=== PATIENT | male | born 1975 | race Two or more races ===

== ENCOUNTER 2018-05-18 09:38 | Emergency (ER) | payer OTHER ==
[2018-05-18 10:07] LABS: NEGATIVE OBC STREP NEG; POSITIVE OBC STREP POS
== END 2018-05-18 10:08 | disposition home or self-care (01) ==
LOC: ER 09:38
DX: J02.9 Acute pharyngitis, unspecified (principal); H66.92 Otitis media, unspecified, left ear; R51 Headache
CPT/HCPCS: 87070; 87880; 99283

== ENCOUNTER 2019-07-30 11:09 | Emergency (ER) | payer MEDICAID ==
[~2019-07-30] VITALS: Ht 162.6 cm; Wt 68.0 kg
[~2019-07-30 11:09] MED LIST: AMOX500C PO; PRED20TA PO
[2019-07-30 11:45] VITALS: BP 157/85
[2019-07-30] MEDS ORDERED: DEXAMETHASONE 4 MG TABLET PO STA (12:21)
--- NOTE | 2019-07-30 12:29 | PHYS DOC ---
Past Medical History Past Medical History: No Pertinent History Past Surgical History: No Surgical History Additional Past Surgical Histo: Ear Alcohol Use: None Drug Use: None Adult General Chief Complaint Chief Complaint: SORE THROAT HPI HPI Patient is a 44 year old male who presents with runny nose, cough has been ongoing for 5 days. Patient rates his pain as 8 out of 10 and sharp also states he has body aches. Has not taking medicine prior to arrival. Review of Systems Review of Systems Constitutional: Denies fever or chills [] Eyes: Denies change in visual acuity, redness, or eye pain [] HENT: Reports nasal congestion or sore throat [] Respiratory: Reports cough but denies shortness of breath [] Cardiovascular: No additional information not addressed in HPI [] GI: Denies abdominal pain, nausea, vomiting, bloody stools or diarrhea [] : Denies dysuria or hematuria [] Musculoskeletal: Denies back pain or joint pain [] Integument: Denies rash or skin lesions [] Neurologic: Denies headache, focal weakness or sensory changes [] Endocrine: Denies polyuria or polydipsia [] Complete systems were reviewed and found to be within normal limits, except as documented in this note. Current Medications Current Medications Current Medications Medications (Trade) Dose Ordered Sig/Snow Start Time Stop Time Status Last Admin Dose Admin Dexamethasone (Decadron) 10 mg 1X STAT 07/30/19 12:21 07/30/19 12:22 UNV Allergies Allergies Allergies Coded Allergies Type Severity Reaction Last Updated Verified No Known Drug Allergies 05/18/18 No Physical Exam Physical Exam Constitutional: Well developed, well nourished, no acute distress, non-toxic appearance. [] HENT: Normocephalic, atraumatic, bilateral external ears normal, oropharynx [address], tonsils are 2+/4, no oral exudates, nose normal. [] Eyes: PERRLA, EOMI, conjunctiva normal, no discharge. [] Neck: Normal range of motion, no tenderness, supple, no stridor. [] Cardiovascular:Heart rate regular rhythm, no murmur [] Lungs & Thorax: Bilateral breath sounds clear to auscultation [] Abdomen: Bowel sounds normal, soft, no tenderness, no masses, no pulsatile masses. [] Skin: Warm, dry, no erythema, no rash. [] Back: No tenderness, no CVA tenderness. [] Extremities: No tenderness, no cyanosis, no clubbing, ROM intact, no edema. [] Neurologic: Alert and oriented X 3, normal motor function, normal sensory function, no focal deficits noted. [] Psychologic: Affect normal, judgement normal, mood normal. [] Current Patient Data Vital Signs Vital Signs Date Time Temp Pulse Resp B/P (MAP) Pulse Ox O2 Delivery O2 Flow Rate FiO2 07/30/19 11:45 98.1 75 18 157/85 (109) 95 Room Air 98.1 EKG EKG [] Radiology/Procedures Radiology/Procedures [] Course & Med Decision Making Course & Med Decision Making Pertinent Labs and Imaging studies reviewed. (See chart for details) Will give Decadron in ER. Appears to have URI. Will instruct to take Mucinex, Zyrtec, and Flonase at home. Dragon Disclaimer Dragon Disclaimer This electronic medical record was generated, in whole or in part, using a voice recognition dictation system. Departure Departure Impression: Primary Impression: URI (upper respiratory infection) Disposition: HOME, SELF-CARE Condition: STABLE Referrals: NO PCP (PCP) Patient Instructions: Upper Respiratory Infection, Adult Additional Instructions: Thank you for visiting [facility]. We appreciate you trusting us with your care. If any additional problems come up don't hesitate to return to visit us. Please follow up with your primary care provider so they can plan additional care if needed and know about the problem that you had. If symptoms worsen come back to the Emergency Department. Any concerning symptoms that start such as chest pain, shortness of air, weakness or numbness on one side of the body, running high fevers or any other concerning symptoms return to the ER. Please take Mucinex, Zyrtec, and Flonase at home over the counter. Follow label instructions. Please drink plenty of fluids. Problem Qualifiers Primary Impression: URI (upper respiratory infection) URI type: unspecified URI Qualified Codes: J06.9 - Acute upper respiratory infection, unspecified LAKSHMI JANSEN APRN Jul 30, 2019 12:29
== END 2019-07-30 12:38 | disposition home or self-care (01) ==
LOC: ER 11:09
DX: J06.9 Acute upper respiratory infection, unspecified (principal); M79.18 Myalgia, other site
CPT/HCPCS: 99282; J8540

== ENCOUNTER 2019-12-06 11:57 | Emergency (ER) | payer MEDICAID ==
[~2019-12-06] VITALS: Ht 160 cm; Wt 77.1 kg
[2019-12-06] MEDS ORDERED: KETOROLAC TROMETHAMINE 10 MG TABLET PO STA (13:16)
[2019-12-06] MEDS ORDERED: IBUP-1027 PO (13:21)
[2019-12-06] MEDS ORDERED: ORPH100T PO (13:21)
[2019-12-06 13:22] VITALS: BP 153/83
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
== END 2019-12-06 13:35 | disposition home or self-care (01) ==
LOC: ER 11:57
DX: M54.5 Low back pain (principal); M54.6 Pain in thoracic spine; M25.562 Pain in left knee; G89.11 Acute pain due to trauma; V49.9XXA Car occupant (driver) (passenger) injured in unspecified traffic accident, initial encounter; Y93.89 Activity, other specified; Y92.488 Other paved roadways as the place of occurrence of the external cause; Y99.8 Other external cause status
CPT/HCPCS: 99283

== ENCOUNTER 2020-03-27 17:15 | Emergency (ER) | payer MEDICAID ==
[~2020-03-27] VITALS: Ht 165.1 cm; Wt 77.7 kg
[~2020-03-27 17:15] MED LIST changes: +IBUP-1027 PO; +ORPH100T PO
[2020-03-27] MEDS ORDERED: DEXAMETHASONE 4 MG TABLET PO ONE (18:45)
[2020-03-27] MEDS ORDERED: BENZ100C PO (19:01)
[2020-03-27] MEDS ORDERED: AZIT250T PO (19:01)
[2020-03-27] MEDS ORDERED: PRED20TA PO (19:01)
--- NOTE | 2020-03-27 19:01 | PHYS DOC ---
Past Medical History Past Medical History: No Pertinent History Past Surgical History: No Surgical History Additional Past Surgical Histo: Ear Smoking Status: Never Smoker Alcohol Use: None Drug Use: None General Adult EDM: Chief Complaint: COUGH HPI: HPI: 44-year-old male presents with report of cough x3 weeks. Patient reports he was tested for influenza as well as COVID 19 and they have come back negative. Zachary keren denies known sick contacts. Denies fever or chills. Review of Systems: Review of Systems: Constitutional: Denies fever or chills Eyes: Denies redness or eye pain HENT: Denies nasal congestion or sore throat Respiratory: Denies cough or shortness of breath Cardiovascular: Denies chest pain or palpitations GI: Denies abdominal pain, nausea, or vomiting : Denies dysuria or hematuria Musculoskeletal: Denies back pain or joint pain Integument: Denies rash or skin lesions Neurologic: Denies headache, focal weakness or sensory changes Complete systems were reviewed and found to be within normal limits, except as documented in this note. Current Medications: Current Medications Medications (Trade) Dose Ordered Sig/Snow Start Time Stop Time Status Last Admin Dose Admin Dexamethasone (Decadron) 10 mg 1X ONCE 03/27/20 18:45 03/27/20 18:47 DC Allergies: Allergies: Allergies Coded Allergies Type Severity Reaction Last Updated Verified No Known Drug Allergies 05/18/18 No Physical Exam: PE: Constitutional: Well developed, well nourished, no acute distress, non-toxic appearance HENT: Normocephalic, atraumatic, oropharynx moist, phyarynx with erythema without exudate- appears more consistent for post nasal drip Eyes: Conjunctiva normal, no discharge Neck: Normal range of motion, no tenderness, supple Cardiovascular: Heart rate normal, regular rhythm Lungs & Thorax: Bilateral breath sounds clear to auscultation, no wheezing/rales/rhonchi Skin: Warm, dry, no erythema, no rash Extremities: No tenderness, ROM intact, no edema Neurologic: Alert and oriented X 3, no focal deficits noted Psychologic: Affect normal, judgment normal EKG: EKG: [] Radiology/Procedures: Radiology/Procedures: PROCEDURE: PORTABLE CHEST 1V EXAM: AP View of the chest DATE: 03/27/2020 6:43 PM INDICATION: Cough COMPARISON: No Prior FINDINGS: The heart is not enlarged. Mediastinal and hilar contours are normal. No focal parenchymal airspace opacity. No pleural effusion or pneumothorax. IMPRESSION: 1. No radiographic evidence for acute cardiopulmonary process. Electronically signed by: Lopez Nayak MD (03/27/2020 7:06 PM) MICK Course & Med Decision Making: Course & Med Decision Making Pertinent Labs and Imaging studies reviewed. (See chart for details) Patient presents with 3-week history of cough. Patient reports previously tested for influenza and COVID19 which were "negative ". Patient also complaining of sore throat. Rapid strep negative. Chest x-ray without acute process. Symptomatic treatment provided with oral steroid. Symptoms more consistent for bronchitis. Patient stable for discharge with outpatient follow-up with PCP. Discussed findings and plan with patient, who acknowledges understanding and agreement. Dragon Disclaimer: Laine Disclaimer: This electronic medical record was generated, in whole or in part, using a voice recognition dictation system. Departure Departure Impression: Primary Impression: Bronchitis Disposition: HOME, SELF-CARE Condition: STABLE Referrals: NO PCP (PCP) Patient Instructions: Acute Bronchitis, [id number] Scripts Benzonatate (TESSALON PERLE) 100 Mg Capsule 1 CAP PO TID PRN for COUGH, #21 CAP Prov: LAKSHMI SYED DO 03/27/20 Prednisone (PREDNISONE) 20 Mg Tablet 2 TAB PO DAILY, #8 TAB Stat this prescription tomorrow, Thu03/28/20 Prov: LAKSHMI SYED DO 03/27/20 Azithromycin (ZITHROMAX) 250 Mg Tablet 1 PKG PO UD, #6 TAB Two tabs day 1, then 1 tab daily for days 2-5. Prov: LAKSHMI SYED DO 03/27/20 LAKSHMI SYED DO March 27, 2020 19:01
[2020-03-27 19:03] VITALS: BP 129/87
--- NOTE | 2020-03-27 19:09 | RAD ---
EXAM: AP View of the chest DATE: 03/27/2020 6:43 PM INDICATION: Cough COMPARISON: No Prior FINDINGS: The heart is not enlarged. Mediastinal and hilar contours are normal. No focal parenchymal airspace opacity. No pleural effusion or pneumothorax. IMPRESSION: 1. No radiographic evidence for acute cardiopulmonary process. Electronically signed by: Lopez Nayak MD (03/27/2020 7:06 PM) MICK
== END 2020-03-27 19:30 | disposition home or self-care (01) ==
LOC: ER 17:15
DX: J40 Bronchitis, not specified as acute or chronic (principal); R05 Cough; Z98.890 Other specified postprocedural states
CPT/HCPCS: 71045; 87070; 87880; 99284; J8540; 99283

== ENCOUNTER 2020-04-11 11:40 | Emergency (ER) | payer MEDICAID ==
[~2020-04-11] VITALS: Ht 162.6 cm; Wt 80.0 kg
[~2020-04-11 11:40] MED LIST changes: +AZIT250T PO; +BENZ100C PO
[2020-04-11 12:09] VITALS: BP 144/90
[2020-04-11] MEDS ORDERED: FEXO60TA25 PO (12:30)
--- NOTE | 2020-04-11 13:19 | PHYS DOC ---
Past Medical History Past Medical History: No Pertinent History Past Surgical History: No Surgical History Additional Past Surgical Histo: Ear Smoking Status: Never Smoker Alcohol Use: None Drug Use: None Adult General Chief Complaint Chief Complaint: HEADACHE HPI HPI Patient is a 44 year old male who presents with nasal congestion rhinorrhea, cough, sore throat and headache. Patient seen in the emergency department 2 weeks ago for sore throat and completed course of antibiotics. Symptoms have not worsened but have not fully resolved. No fever chills, sweats, dysphonia, drooling dysphasia. No shortness of breath wheezing. No other acute symptoms or complaints. Patient has not been evaluated in follow-up by his PCP. [] Review of Systems Review of Systems Review of symptoms as per HPI. All other review of symptoms are negative. All other systems were reviewed and found to be within normal limits, except as documented in this note. Allergies Allergies Allergies Coded Allergies Type Severity Reaction Last Updated Verified No Known Drug Allergies 05/18/18 No Physical Exam Physical Exam Constitutional: Well developed, well nourished, no acute distress, non-toxic appearance. [] HENT: Normocephalic, atraumatic, bilateral external ears normal, oropharynx, pharyngeal erythema, no oral exudates, nose normal. [] Eyes: PERRLA, EOMI, conjunctiva normal, no discharge. [] Neck: Normal range of motion, no tenderness, supple, no stridor. [] Cardiovascular:Heart rate regular rhythm, no murmur [] Lungs & Thorax: Bilateral breath sounds clear to auscultation [] Abdomen: Bowel sounds normal, soft. [] Skin: Warm, dry, no erythema, no rash. [] Back: No tenderness, no CVA tenderness. [] Extremities: No tenderness, no cyanosis, no clubbing, ROM intact, no edema. [] Neurologic: Alert and oriented X 3, normal motor function, normal sensory function, no focal deficits noted. [] Psychologic: Affect normal, judgement normal, mood normal. [] Current Patient Data Vital Signs Vital Signs Date Time Temp Pulse Resp B/P (MAP) Pulse Ox O2 Delivery O2 Flow Rate FiO2 04/11/20 12:09 99.2 83 16 144/90 (108) 97 Room Air 99.2 EKG EKG [] Radiology/Procedures Radiology/Procedures [] Course & Med Decision Making Course & Med Decision Making Pertinent Labs and Imaging studies reviewed. (See chart for details) [Suspect headache and sore throat are allergy mediated. Recommend] Dragon Disclaimer Dragon Disclaimer This electronic medical record was generated, in whole or in part, using a voice recognition dictation system. Departure Departure Impression: Primary Impression: Pharyngitis Disposition: HOME, SELF-CARE Condition: GOOD Patient Instructions: Sore Throat, [id number] Additional Instructions: Please take newly prescribed medication and contact your family doctor for re- evaluation. Scripts Fexofenadine Hcl (GWENDOLYN ALLERGY) 60 Mg Tablet 1 TAB PO BID for allergy symptoms for 30 Days, #60 TAB 0 Refills Prov: ALLY ZAMAN DO 04/11/20 ALLY ZAMAN DO April 11, 2020 13:19
== END 2020-04-11 12:41 | disposition home or self-care (01) ==
LOC: ER 11:40
DX: J02.9 Acute pharyngitis, unspecified (principal); R09.81 Nasal congestion; R05 Cough; J34.89 Other specified disorders of nose and nasal sinuses; Z98.890 Other specified postprocedural states
CPT/HCPCS: 99282

== ENCOUNTER 2020-05-29 18:53 | Emergency (ER) | payer MEDICAID ==
[~2020-05-29] VITALS: Ht 165.1 cm; Wt 68.6 kg
[~2020-05-29 18:53] MED LIST changes: +FEXO60TA25 PO
[2020-05-29 19:05] VITALS: BP 125/78
[2020-05-29] MEDS ORDERED: TRIA15CR TP (19:18)
[2020-05-29] MEDS ORDERED: PRED-220 PO (19:18)
--- NOTE | 2020-05-29 19:19 | PHYS DOC ---
Past Medical History Past Medical History: No Pertinent History (SANAZ ALVARADO APRN) Past Surgical History: No Surgical History Additional Past Surgical Histo: Ear (SANAZ ALVARADO APRN) Smoking Status: Never Smoker Alcohol Use: None Drug Use: None (SANAZ ALVARADO APRN) General Adult EDM: Chief Complaint: SKIN RASH/ABSCESS HPI: HPI: Patient is a 44 year old male presents for evaluation of pruritic rash to both of his hands. Reports symptoms started yesterday. He has been doing yard work recently at his home. Believes he may have gotten into some poison akira plants. (SANAZ ALVARADO APRN) Review of Systems: Review of Systems: Constitutional: Denies fever or chills. [] Eyes: Denies change in visual acuity. [] HENT: Denies nasal congestion or sore throat. [] Respiratory: Denies cough or shortness of breath. [] Cardiovascular: Denies chest pain or edema. [] GI: Denies abdominal pain, nausea, vomiting, bloody stools or diarrhea. [] : Denies dysuria. [] Musculoskeletal: Denies back pain or joint pain. [] Integument: Reports rash. [] Neurologic: Denies headache, focal weakness or sensory changes. [] Endocrine: Denies polyuria or polydipsia. [] Lymphatic: Denies swollen glands. [] Psychiatric: Denies depression or anxiety. [] (SANAZ ALVARADO APRN) Heart Score: Risk Factors: Risk Factors: DM, Current or recent (<one month) smoker, HTN, HLP, family history of CAD, obesity. Risk Scores: Score 0 - 3: 2.5% MACE over next 6 weeks - Discharge Home Score 4 - 6: 20.3% MACE over next 6 weeks - Admit for Clinical Observation Score 7 - 10: 72.7% MACE over next 6 weeks - Early Invasive Strategies (SANAZ ALVARADO APRN) Allergies: Allergies: Allergies Coded Allergies Type Severity Reaction Last Updated Verified No Known Drug Allergies 05/18/18 No (SANAZ ALVARADO APRN) Physical Exam: PE: Constitutional: Well developed, well nourished, no acute distress, non-toxic appearance. [] HENT: Normocephalic, atraumatic, bilateral external ears normal, oropharynx mo ist, no oral exudates, nose normal. [] Eyes: PERRLA, EOMI, conjunctiva normal, no discharge. [] Skin: Erythematous rash to dorsal aspects of both hands [] Extremities: No tenderness, no cyanosis, no clubbing, ROM intact, no edema. [] Neurologic: Alert and oriented X 3, normal motor function, normal sensory function, no focal deficits noted. [] Psychologic: Affect normal, judgement normal, mood normal. [] (SANAZ ALVARADO APRN) EKG: EKG: [] (SANAZ ALVARADO APRN) Radiology/Procedures: Radiology/Procedures: [] (SANAZ ALVARADO APRN) Course & Med Decision Making: Course & Med Decision Making Pertinent Labs and Imaging studies reviewed. (See chart for details) [Symptoms consistent with contact dermatitis likely from poison akira plants, patient is given prescription for triamcinolone and prednisone. Recommend close follow-up with primary care doctor, return to ER for new or worsening symptoms.] (SANAZ ALVARADO APRN) Dragon Disclaimer: Dragon Disclaimer: This electronic medical record was generated, in whole or in part, using a voice recognition dictation system. (SANAZ ALVARADO APRN) Departure Departure Impression: Primary Impression: Contact dermatitis and eczema due to plant Disposition: 01 HOME, SELF-CARE Condition: STABLE Referrals: UNKNOWN PCP NAME (PCP) Patient Instructions: Contact Dermatitis, Ntcj-tf-Iqji Scripts Prednisone (PREDNISONE ) 10 Mg Tablet 10 MG PO UD for PREDNISONE TAPER, #39 TAB 0 Refills Take 3 tablets by mouth twice a day for 3 days, then take 2 tablets by mouth twice a day for 3 days, then take 1 tablet by mouth twice a day for 3 days, then take 1 tablet by mouth daily x 3 days, then stop. Prov: SANAZ ALVARADO APRN 05/29/20 Triamcinolone Acetonide (TRIAMCINOLONE ACETONIDE 0.5% CREAM) 15 Gm Cream..g. 1 KEN TP BID, #15 GM 1 Refill Prov: SANAZ ALVARADO APRN 05/29/20 Justicifation of Admission Dx: Justifications for Admission: Justification of Admission Dx: N/A (SANAZ ALVARADO APRN) Attending Signature Attending Signature I have participated in the care of this patient and I have reviewed and agree with all pertinent clinical information above including history, exam, and recommendations. (GALEN PEREZ DO) SANAZ ALVARADO APRN May 29, 2020 19:19 GALEN PEREZ DO May 29, 2020 23:15
== END 2020-05-29 19:27 | disposition home or self-care (01) ==
LOC: ER 18:53
DX: L23.7 Allergic contact dermatitis due to plants, except food (principal); R21 Rash and other nonspecific skin eruption; Z98.890 Other specified postprocedural states
CPT/HCPCS: 99283

== ENCOUNTER 2021-06-05 17:43 | Emergency (ER) | payer MEDICAID ==
[~2021-06-05] VITALS: Ht 165.1 cm; Wt 74.6 kg
[~2021-06-05 17:43] MED LIST changes: +PRED-220 PO; +TRIA15CR TP
[2021-06-05 18:40] VITALS: BP 129/84
[2021-06-05] MEDS ORDERED: TRIA15CR TP (19:35)
[2021-06-05] MEDS ORDERED: METH4TAB2 PO (19:35)
--- NOTE | 2021-06-05 19:35 | PHYS DOC ---
Past Medical History Past Medical History: GERD, Kidney Stone (MARKEL ARAUJO [employer]ERSON[employer] OFFICER) Past Surgical History: Other Additional Past Surgical Histo: Ear, LITHOTRIPSY (MARKEL [employer]RAU[employer] OFFICER) Smoking Status: Never Smoker Alcohol Use: None Drug Use: None (MARKEL ARAUJO APRN) General Adult EDM: Chief Complaint: ITCHING HPI: HPI: Patient is a 46 year old male who presents with states a few days ago he was outside cleaning out weeds and doing yard work and he now has penile itching. He states he did not wash his hands before he went to urinate. Patient has redness and itching to a small area around the penis when he pulls back the foreskin and slightly to his scrotal area. There is no cellulitis. There is no drainage. He states it hurts when he urinates due to irritation. He states is just very itchy and is keeping him up at night. There is no swelling. There is no tenderness. No signs of infection. Patient denies any pain at this time. (MARKEL ARAUJO [employer]ERSON[employer] OFFICER) Review of Systems: Review of Systems: Constitutional: Denies fever or chills. [] Eyes: Denies change in visual acuity. [] HENT: Denies nasal congestion or sore throat. [] Respiratory: Denies cough or shortness of breath. [] Cardiovascular: Denies chest pain or edema. [] GI: Denies abdominal pain, nausea, vomiting, bloody stools or diarrhea. [] : Denies dysuria. [] Musculoskeletal: Denies back pain or joint pain. [] Integument: + Penile rash. + Penile itching [] Neurologic: Denies headache, focal weakness or sensory changes. [] Endocrine: Denies polyuria or polydipsia. [] Lymphatic: Denies swollen glands. [] Psychiatric: Denies depression or anxiety. [] (MARKEL ARAUJO [employer] OFFICER) Heart Score: C/O Chest Pain: No Risk Factors: Risk Factors: DM, Current or recent (<one month) smoker, HTN, HLP, family history of CAD, obesity. Risk Scores: Score 0 - 3: 2.5% MACE over next 6 weeks - Discharge Home Score 4 - 6: 20.3% MACE over next 6 weeks - Admit for Clinical Observation Score 7 - 10: 72.7% MACE over next 6 weeks - Early Invasive Strategies (MARKEL ARAUJO APRN) Allergies: Allergies: Allergies Coded Allergies Type Severity Reaction Last Updated Verified No Known Drug Allergies 06/05/21 No (MARKEL ARAUJO APRN) Physical Exam: PE: Constitutional: Well developed, well nourished, no acute distress, non-toxic appearance. [] HENT: Normocephalic, atraumatic, bilateral external ears normal, oropharynx moist, no oral exudates, nose normal. [] Eyes: PERRLA, EOMI, conjunctiva normal, no discharge. [] Neck: Normal range of motion, no tenderness, supple, no stridor. [] Cardiovascular:Heart rate regular rhythm, no murmur [] Lungs & Thorax: Bilateral breath sounds clear to auscultation [] Abdomen: Bowel sounds normal, soft, no tenderness, no masses, no pulsatile masses. [] Skin: Warm, dry, no erythema, no rash. penile redness irritation to tip of penis [] Back: No tenderness, no CVA tenderness. [] Extremities: No tenderness, no cyanosis, no clubbing, ROM intact, no edema. [] Neurologic: Alert and oriented X 3, normal motor function, normal sensory fun ction, no focal deficits noted. [] Psychologic: Affect normal, judgement normal, mood normal. [] (MARKEL ARAUJO APRN) Current Patient Data: Vital Signs: Vital Signs Date Time Temp Pulse Resp B/P (MAP) Pulse Ox O2 Delivery O2 Flow Rate FiO2 06/05/21 18:40 98.1 55 16 129/84 (94) 100 Room Air 98.1 (MARKEL ARAUJO APRN) EKG: EKG: [] (MARKEL ARAUJO APRN) Radiology/Procedures: Radiology/Procedures: [] (MARKEL ARAUJO APRN) Course & Med Decision Making: Course & Med Decision Making Pertinent Labs and Imaging studies reviewed. (See chart for details) See HPI. Alert and oriented x4. Ambulatory with steady gait. Speaks in full clear sentences. Denies fever and he is afebrile. Patient states this happened to him last year and was given triamcinolone cream and steroid by mouth and it worked. [] (MARKEL ARAUJO APRN) Course & Med Decision Making Patients Care and treatment plan provided by ER Nurse Practitioner. I was available for consult. Patient's chart reviewed. (SHANTE MCLAUGHLIN DO) Laine Disclaimer: Laine Disclaimer: This electronic medical record was generated, in whole or in part, using a voice recognition dictation system. (MARKEL ARAUJO APRN) Departure Departure Impression: Primary Impression: Contact dermatitis and eczema due to plant Disposition: HOME / SELF CARE / HOMELESS Condition: STABLE Referrals: UNKNOWN PCP NAME (PCP) Patient Instructions: Contact Dermatitis Additional Instructions: Follow-up with primary care provider if needed. Use medication as prescribed. Scripts Methylprednisolone (MEDROL) 4 Mg Tab.ds.pk 1 PKG PO UD, #1 PKG Prov: MARKEL ARAUJO APRN 06/05/21 Triamcinolone Acetonide (TRIAMCINOLONE ACETONIDE 0.5% CREAM) 15 Gm Cream..g. 1 KEN TP BID for 5 Days, #30 GM Prov: MARKEL ARAUJO APRN 06/05/21 MARKEL ARAUJO APRN Jun 05, 2021 19:35 SHANTE MCLAUGHLIN DO Jun 06, 2021 03:56
== END 2021-06-05 19:48 | disposition home or self-care (01) ==
LOC: ER 17:43
DX: L25.5 Unspecified contact dermatitis due to plants, except food (principal); K21.9 Gastro-esophageal reflux disease without esophagitis
CPT/HCPCS: 99283